=== PATIENT | male | born 1940 | race Caucasian/White ===

== ENCOUNTER 2018-06-08 10:01 | Emergency (ER) | payer MEDICARE, OTHER ==
[2018-06-08] MEDS ORDERED: Aspirin 81 MG Tab.Chew PO ONE (10:22)
--- NOTE | 2018-06-08 10:24 | EDM.PDOC ---
ED HPI GENERAL MEDICAL PROBLEM - General Chief Complaint: Chest Pain Stated Complaint: CHEST PAIN Time Seen by Provider: 06/08/18 10:23 Source of Information: Reports: Patient History Limitations: Reports: No Limitations - History of Present Illness INITIAL COMMENTS - FREE TEXT/NARRATIVE: pt arrived with a history of atypical chest pain which started at 3 am. He states the pain is minor rating it a 2-3. He states it does hurt a little more when he takes a deep breath. He has not been doing alot of lifting, He has not had increased pain when he walks. Onset: Other ( started at 3 am. He states he is under a little stress because his is in rehap post back surgery. He has been seeing the cardiology dept in [place]. He was to have a echo. ) Duration: Hour(s): Location: Reports: Chest Associated Symptoms: Reports: Chest Pain, Other (low grade pain. She did not get sweaty. ) - Related Data Allergies Allergy/AdvReac Type Severity Reaction Status Date / Time No Known Allergies Allergy Verified 06/08/18 10:07 Home Meds: Home Meds Aspirin [Ecotrin] 81 mg PO DAILY 10/30/15 [History] Nitroglycerin [Nitrostat] 0.4 mg SL ASDIRECTED PRN 10/30/15 [History] atorvaSTATin [Lipitor] 80 mg PO BEDTIME 10/30/15 [History] Carvedilol [Coreg] 3.125 mg PO BID 04/28/17 [History] Famotidine 20 mg PO BID PRN 04/28/17 [History] Isosorbide Mononitrate [Imdur] 60 mg PO DAILY 04/28/17 [History] Lisinopril 1 tab PO DAILY 04/28/17 [History] Pantoprazole [ProTONIX] 40 mg PO BID 04/28/17 [History] Acetaminophen [Tylenol Arthritis] 1 tab PO Q6H PRN 06/03/17 [History] Clopidogrel [Plavix] 75 mg PO DAILY 06/08/18 [History] Past Medical History HEENT History: Reports: Impaired Vision Cardiovascular History: Reports: CAD, High Cholesterol, Hypertension, [place], Prior Cardiac Arrest, Stents Respiratory History: Reports: Sleep Apnea, Other (See Below) Other Respiratory History: has cpap Gastrointestinal History: Reports: GERD, Hiatal Hernia Musculoskeletal History: Reports: Fracture, Osteoarthritis, Other (See Below) Other Musculoskeletal History: r shoulder r knee pain Neurological History: Reports: Concussion - Infectious Disease History Infectious Disease History: Reports: Measles, Mumps - Past Surgical History Head Surgeries/Procedures: Reports: None Cardiovascular Surgical History: Reports: Coronary Artery Stent, Percutaneous Transluminal Angioplasty Respiratory Surgical History: Reports: None GI Surgical History: Reports: Appendectomy Neurological Surgical History: Reports: None Musculoskeletal Surgical History: Reports: None Social & Family History - Tobacco Use Smoking Status *Q: Former Smoker Used Tobacco, but Quit: Yes Month/Year Tobacco Last Used: 1984 Second Hand Smoke Exposure: No - Caffeine Use Caffeine Use: Reports: Coffee - Recreational Drug Use Recreational Drug Use: No ED ROS GENERAL - Review of Systems Review Of Systems: See Below Constitutional: Reports: No Symptoms HEENT: Reports: No Symptoms Respiratory: Reports: Shortness of Breath Cardiovascular: Reports: Chest Pain Endocrine: Reports: No Symptoms GI/Abdominal: Reports: No Symptoms : Reports: No Symptoms Musculoskeletal: Reports: Other ( chest pain) Neurological: Reports: No Symptoms Psychiatric: Reports: No Symptoms ED EXAM, GENERAL - Physical Exam Exam: See Below Free Text/Narrative:: pt arrived with low grade chest pain He is not sob but he does have a slight inmcrease in his pain with deep breathing. hE DOES NOT FEEL ILL. hE WAS TO HAVE A ECHO PER THE [employer] IN [place]. hE HAS NOT BEEN ABLE TO GET THIS SCHEDULED. General Appearance: Alert, Mild Distress Ears: Normal TMs Nose: Normal Inspection Throat/Mouth: Normal Inspection Head: Atraumatic Neck: Normal Inspection Respiratory/Chest: No Respiratory Distress Cardiovascular: Regular Rate, Rhythm, Other ( EKG DID NOT SHOW ACUTE CHANGES. ) GI/Abdominal: Soft, Non-Tender (Male) Exam: Deferred Rectal (Males) Exam: Deferred Back Exam: Normal Inspection Extremities: Normal Inspection Neurological: Alert, Oriented, Normal Cognition Course - Vital Signs Last Recorded V/S: Last Vital Signs Temp 36.1 C 06/08/18 10:36 Pulse 71 06/08/18 13:40 Resp 12 06/08/18 13:40 BP 144/85 H 06/08/18 13:40 Pulse Ox 96 06/08/18 13:40 - Orders/Labs/Meds Orders: Active Orders 24 hr Category Date Time Status EKG Documentation Completion [RC] ASDIRECTED Care 06/08/18 10:22 Active Echo Comp wo Cont [US] Stat Exams 06/08/18 11:55 Taken EKG 12 Lead [EK] Routine Ther 06/08/18 10:22 Ordered Labs: Laboratory Tests 06/08/18 06/08/18 06/08/18 Range/Units 10:21 10:26 10:26 WBC 8.2 (4.5-11.0) K/uL RBC 4.71 (4.30-5.90) M/uL Hgb 14.7 (12.0-15.0) g/dL Hct 42.4 (40.0-54.0) % MCV 90 (80-98) fL MCH 31 (27-31) pg MCHC 35 (32-36) % Plt Count 227 (150-400) K/uL Neut % (Auto) 51 (36-66) % Lymph % (Auto) 33 (24-44) % [place] % (Auto) 12 H (2-6) % Eos % (Auto) 4 (2-4) % Baso % (Auto) 1 (0-1) % Sodium 141 (140-148) mmol/L Potassium 4.4 (3.6-5.2) mmol/L Chloride 104 (100-108) mmol/L Carbon Dioxide 30 (21-32) mmol/L Anion Gap 7.1 (5.0-14.0) mmol/L BUN 14 (7-18) mg/dL Creatinine 1.0 (0.8-1.3) mg/dL Est Cr Clr Drug Dosing 62.84 mL/min Estimated GFR (MDRD) > 60 (>60) Glucose 64 L (74-106) mg/dL Calcium 8.8 (8.5-10.1) mg/dL Total Bilirubin 1.2 H (0.2-1.0) mg/dL AST 19 (15-37) U/L ALT 34 (12-78) U/L Alkaline Phosphatase 58 (46-116) U/L Troponin I < 0.017 (0.000-0.056) ng/mL Total Protein 6.9 (6.4-8.2) g/dL Albumin 3.9 (3.4-5.0) g/dL Globulin 3.0 (2.3-3.5) g/dL Albumin/Globulin Ratio 1.3 (1.2-2.2) 06/08/18 Range/Units 13:31 WBC (4.5-11.0) K/uL RBC (4.30-5.90) M/uL Hgb (12.0-15.0) g/dL Hct (40.0-54.0) % MCV (80-98) fL MCH (27-31) pg MCHC (32-36) % Plt Count (150-400) K/uL Neut % (Auto) (36-66) % Lymph % (Auto) (24-44) % [place] % (Auto) (2-6) % Eos % (Auto) (2-4) % Baso % (Auto) (0-1) % Sodium (140-148) mmol/L Potassium (3.6-5.2) mmol/L Chloride (100-108) mmol/L Carbon Dioxide (21-32) mmol/L Anion Gap (5.0-14.0) mmol/L BUN (7-18) mg/dL Creatinine (0.8-1.3) mg/dL Est Cr Clr Drug Dosing mL/min Estimated GFR (MDRD) (>60) Glucose (74-106) mg/dL Calcium (8.5-10.1) mg/dL Total Bilirubin (0.2-1.0) mg/dL AST (15-37) U/L ALT (12-78) U/L Alkaline Phosphatase (46-116) U/L Troponin I < 0.017 (0.000-0.056) ng/mL Total Protein (6.4-8.2) g/dL Albumin (3.4-5.0) g/dL Globulin (2.3-3.5) g/dL Albumin/Globulin Ratio (1.2-2.2) Meds: Medications Discontinued Medications Generic Name Dose Route Start Last Admin Trade Name Freq PRN Reason Stop Dose Admin Aspirin 324 mg 06/08/18 10:22 06/08/18 10:35 Aspirin PO 06/08/18 10:23 324 mg ONETIME ONE Administration - Re-Assessments/Exams Free Text/Narrative Re-Assessment/Exam: 06/08/18 15:27 PT HAD 2 NEG TROPS, HIS EKG DID NOT SHOW ACUTE FINDINGS. hIS CHEST XRAY DID NOT REVEAL A ACUTE INFILTRATE. Departure - Departure Time of Disposition: 14:16 Disposition: Home, Self-Care 01 Condition: Fair Clinical Impression: Atypical chest pain Instructions: Exercise Stress Test, [id number] Referrals: PCP,None [Primary Care Provider] - Forms: ED Department Discharge Additional Instructions: Cardiolite Stress Test is scheduled for Tuesday at 08:15AM with Cardiac Rehab in the basement of the hospital. Care Plan Goals: Call and make a follow up appt with Dr Faust on tue and , call xray the result of the echo should be sent to Dr Faust and the result of the exercise cardiolyte should be sent to Dr Faust. rtc if symptoms should change. tylenol and motrin for chest disciomfort. - My Orders Last 24 Hours: My Active Orders 06/08/18 10:22 EKG Documentation Completion [RC] ASDIRECTED EKG 12 Lead [EK] Routine 06/08/18 11:55 Echo Comp wo Cont [US] Stat - Assessment/Plan Last 24 Hours: My Active Orders 06/08/18 10:22 EKG Documentation Completion [RC] ASDIRECTED EKG 12 Lead [EK] Routine 06/08/18 11:55 Echo Comp wo Cont [US] Stat
--- NOTE | 2018-06-08 11:09 | CR ---
Findings: Heart size within normal limits. Pulmonary vasculature within normal limits. Probable hiatal hernia redemonstrated compared to 11/24/2015. No focal consolidation.
[2018-06-08 14:06] VITALS: BP 144/85
== END 2018-06-08 14:30 | disposition home or self-care (01) ==
LOC: JP.ED 10:01
DX: R07.89 Other chest pain (principal); E78.00 Pure hypercholesterolemia, unspecified; I25.10 Atherosclerotic heart disease of native coronary artery without angina pectoris; I25.2 Old myocardial infarction; K21.9 Gastro-esophageal reflux disease without esophagitis; Z87.891 Personal history of nicotine dependence; Z79.899 Other long term (current) drug therapy; Z79.82 Long term (current) use of aspirin
CPT/HCPCS: 36415; 71045; 80053; 84484; 85025; 93005; 93306; 99285; A9270; 93010

== ENCOUNTER 2018-09-15 07:33 | Emergency (ER) | payer MEDICARE, OTHER ==
[2018-09-15 07:55] VITALS: BP 122/63
--- NOTE | 2018-09-15 08:36 | EDM.PDOC ---
ED HPI GENERAL MEDICAL PROBLEM - General Chief Complaint: Genitourinary Problem Stated Complaint: POSSIBLE UTI Time Seen by Provider: 09/15/18 08:15 Source of Information: Reports: Patient History Limitations: Reports: No Limitations - History of Present Illness INITIAL COMMENTS - FREE TEXT/NARRATIVE: This gentleman complains of burning on urination for a couple of days. He's had bladder infections in the past but it's been 4 or 5 years ago. He denies any prostate trouble. He does not have any difficulty draining the bladder. He realizes that he drinks very little water. Pelvic Pain Score (Numeric/FACES): 8 - Related Data Allergies Allergy/AdvReac Type Severity Reaction Status Date / Time No Known Allergies Allergy Verified 09/15/18 08:02 Home Meds: Home Meds Aspirin [Ecotrin] 81 mg PO DAILY 10/30/15 [History] Nitroglycerin [Nitrostat] 0.4 mg SL ASDIRECTED PRN 10/30/15 [History] atorvaSTATin [Lipitor] 80 mg PO BEDTIME 10/30/15 [History] Carvedilol [Coreg] 3.125 mg PO BID 04/28/17 [History] Famotidine 20 mg PO BID 04/28/17 [History] Isosorbide Mononitrate [Imdur] 60 mg PO DAILY 04/28/17 [History] Lisinopril 1 tab PO DAILY 04/28/17 [History] Pantoprazole [ProTONIX] 40 mg PO BID 04/28/17 [History] Acetaminophen [Tylenol Arthritis] 1 tab PO Q6H PRN 06/03/17 [History] Clopidogrel [Plavix] 75 mg PO DAILY 06/08/18 [History] Past Medical History HEENT History: Reports: Impaired Vision Cardiovascular History: Reports: CAD, High Cholesterol, Hypertension, [place], Prior Cardiac Arrest, Stents Respiratory History: Reports: Sleep Apnea, Other (See Below) Other Respiratory History: has cpap Gastrointestinal History: Reports: GERD, Hiatal Hernia Musculoskeletal History: Reports: Fracture, Osteoarthritis, Other (See Below) Other Musculoskeletal History: r shoulder r knee pain Neurological History: Reports: Concussion - Infectious Disease History Infectious Disease History: Reports: Measles, Mumps - Past Surgical History Head Surgeries/Procedures: Reports: None Cardiovascular Surgical History: Reports: Coronary Artery Stent, Percutaneous Transluminal Angioplasty Respiratory Surgical History: Reports: None GI Surgical History: Reports: Appendectomy Neurological Surgical History: Reports: None Musculoskeletal Surgical History: Reports: None Social & Family History - Tobacco Use Smoking Status *Q: Former Smoker Used Tobacco, but Quit: Yes Month/Year Tobacco Last Used: 30 years - Caffeine Use Caffeine Use: Reports: Coffee - Recreational Drug Use Recreational Drug Use: No ED ROS GENERAL - Review of Systems Review Of Systems: ROS reveals no pertinent complaints other than HPI. ED EXAM, RENAL/ - Physical Exam Exam: See Below Exam Limited By: No Limitations General Appearance: Alert, WD/WN, No Apparent Distress Respiratory/Chest: No Respiratory Distress GI/Abdominal: Soft, Non-Tender, No Mass, Other (Bladder non-distended) Extremities: Normal Inspection Neurological: Alert, Oriented Course - Vital Signs Last Recorded V/S: Last Vital Signs Temp 35.3 C 09/15/18 07:47 Pulse 92 09/15/18 07:47 Resp 16 09/15/18 07:47 BP 122/63 09/15/18 07:47 Pulse Ox 95 09/15/18 07:47 - Orders/Labs/Meds Labs: Laboratory Tests 09/15/18 Range/Units 07:51 Urine Color Yellow Urine Appearance Cloudy Urine pH 5.0 (4.5-8.0) Ur Specific Odell 1.020 (1.008-1.030) Urine Protein Trace (NEGATIVE) mg/dL Urine Glucose (UA) Negative (NEGATIVE) mg/dL Urine Ketones Negative (NEGATIVE) mg/dL Urine Occult Blood Trace (NEGATIVE) Urine Nitrite Positive (NEGAITVE) Urine Bilirubin Negative (NEGATIVE) Urine Urobilinogen Normal (NORMAL) mg/dL Ur Leukocyte Esterase Moderate (NEGATIVE) Urine RBC 5-10 H (0-5) Urine WBC 40-50 H (0-5) Ur Epithelial Cells Few Amorphous Sediment Not seen Urine Bacteria Many Urine Mucus Not seen Departure - Departure Time of Disposition: 08:34 Disposition: Home, Self-Care 01 Condition: Fair Clinical Impression: UTI, Urinary tract infectious disease - Discharge Information Instructions: Urinary Tract Infection, Adult Referrals: Brian Casas MD [Primary Care Provider] - Forms: ED Department Discharge Additional Instructions: Take Bactrim DS one tablet twice daily for 5 days. Be sure to drink a lot of water with this medicine. For urinary discomfort take phenazopyridine or Pyridium 200 mg 3 times per day. Drinking a lot of water every day can help prevent urinary tract infections. If you have trouble emptying your bladder you could be developing some prostate trouble and should see your DrSean about this.
== END 2018-09-15 08:55 | disposition home or self-care (01) ==
LOC: JP.ED 07:33
DX: N39.0 Urinary tract infection, site not specified (principal); I10 Essential (primary) hypertension; Z79.82 Long term (current) use of aspirin; Z79.899 Other long term (current) drug therapy; Z87.891 Personal history of nicotine dependence
CPT/HCPCS: 81001; 99283

== ENCOUNTER 2019-10-01 18:35 | Emergency (ER) | payer MEDICARE, OTHER ==
[2019-10-01 19:09] VITALS: BP 182/95; PULSE 71
[2019-10-01] MEDS ORDERED: Acetaminophen/HYDROcodone 325-5 MG Tab PO ONE (19:33)
[2019-10-01] MEDS ORDERED: Tetracaine HCl/PF 0.5% 4 ML Bottle EYERT ONE (19:40)
[2019-10-01] MEDS ORDERED: Diphtheria,Pertussis(Acell),Tetanus Vaccine 0.5 ML SDV IM ONE (19:48)
--- NOTE | 2019-10-01 19:49 | EDM.PDOC ---
ED HPI GENERAL MEDICAL PROBLEM - General Chief Complaint: Eye Problems Stated Complaint: R EYE IRRITATION Time Seen by Provider: 10/01/19 19:30 Source of Information: Reports: Patient, Old Records History Limitations: Reports: Other (records not available from today's eye appt. Patient not a great historian.) - History of Present Illness INITIAL COMMENTS - FREE TEXT/NARRATIVE: 79 yo male had an appt in [place] with ophthalmology at 10 am today for a pre-op exam before schedule cataract surgery. He incurred eye pain in the R eye about 3 days ago, but held off and didn't do anything as he knew he had this eye appt coming up. He says they told him he had a scratch in that eye and gave him "Terramycin" to use. He was not given anything for pain and didn't ask for anything for pain. He does not have a follow up appt regarding eye pain. He wears corrective lenses, but didn't bring them along to the ER. He does not know the name of the doctor he saw today. The paper work his brought from home only discusses the upcoming cataract surgery. Did not bring his Terramycin drops with him either. Onset: Unknown/Unsure Duration: Day(s): (3), Getting Worse Location: Reports: Face (R eye) Quality: Reports: Burning Severity: Moderate Improves with: Reports: None Worsens with: Reports: None Context: Reports: Trauma Associated Symptoms: Reports: No Other Symptoms Treatments FACILITY ASSISTANT: Reports: Other (see below) (Terramycin eye drops) Right Eye Pain Score (Numeric/FACES): 10 - Related Data Allergies Allergy/AdvReac Type Severity Reaction Status Date / Time No Known Allergies Allergy Verified 10/01/19 19:02 Home Meds: Home Meds Aspirin [Ecotrin] 81 mg PO DAILY 10/30/15 [History] Nitroglycerin [Nitrostat] 0.4 mg SL ASDIRECTED PRN 10/30/15 [History] atorvaSTATin [Lipitor] 80 mg PO BEDTIME 10/30/15 [History] Famotidine 20 mg PO BID 04/28/17 [History] Isosorbide Mononitrate [Imdur] 60 mg PO DAILY 04/28/17 [History] Lisinopril 1 tab PO DAILY 04/28/17 [History] Pantoprazole [ProTONIX] 40 mg PO BEDTIME 04/28/17 [History] carvediloL [Coreg] 3.125 mg PO BID 04/28/17 [History] Acetaminophen [Tylenol Arthritis] 1 tab PO Q6H PRN 06/03/17 [History] Clopidogrel [Plavix] 75 mg PO DAILY 06/08/18 [History] Erythromycin Base [Erythromycin] 1 drop EYERT ASDIRECTED 10/01/19 [History] Past Medical History HEENT History: Reports: Glaucoma, Impaired Vision Cardiovascular History: Reports: CAD, High Cholesterol, Hypertension, [place], Prior Cardiac Arrest, Stents Respiratory History: Reports: Sleep Apnea, Other (See Below) Other Respiratory History: has cpap Gastrointestinal History: Reports: GERD, Hiatal Hernia Musculoskeletal History: Reports: Fracture, Osteoarthritis, Other (See Below) Other Musculoskeletal History: r shoulder r knee pain Neurological History: Reports: Concussion Hematologic History: Reports: Anticoagulation Therapy - Infectious Disease History Infectious Disease History: Reports: Measles, Mumps - Past Surgical History Head Surgeries/Procedures: Reports: None HEENT Surgical History: Reports: Eye Surgery Cardiovascular Surgical History: Reports: Coronary Artery Stent, Percutaneous Transluminal Angioplasty Respiratory Surgical History: Reports: None GI Surgical History: Reports: Appendectomy Neurological Surgical History: Reports: None Musculoskeletal Surgical History: Reports: None Social & Family History - Tobacco Use Smoking Status *Q: Never Smoker - Caffeine Use Caffeine Use: Reports: Coffee ED ROS GENERAL - Review of Systems Review Of Systems: Comprehensive ROS is negative, except as noted in HPI. Constitutional: Reports: No Symptoms HEENT: Reports: Eye Pain (R eye) ED EXAM GENERAL W FULL EYE - Physical Exam Exam: See Below Exam Limited By: No Limitations General Appearance: Alert, WD/WN, Mild Distress Eye Exam: Bilateral Eye: EOMI, PERRL With Correction: No Eyelids: Bilateral: Normal Appearance Conjunctiva & Sclera: Right: Injected Cornea Exam: Right: Corneal Abrasion (elipse just at bottoem of pupil), Examined with Flourescein Extraocular Movements: Bilateral: Intact Pupillary Size: Bilateral: 4 mm (still slightly dilated from his eye appt earlier today.) Course - Vital Signs Text/Narrative:: Discussed case with Dr. Hoyos, ophthalmology, [place] @ 1945h Last Recorded V/S: Last Vital Signs Temp 36.6 C 10/01/19 19:04 Pulse 71 10/01/19 19:04 Resp 16 10/01/19 19:04 BP 182/95 H 10/01/19 19:04 Pulse Ox 98 10/01/19 19:04 - Orders/Labs/Meds Orders: Active Orders 24 hr Category Date Time Status Vaccines to be Administered [RC] PER UNIT ROUTINE Care 10/01/19 19:48 Active Meds: Medications Discontinued Medications Generic Name Dose Route Start Last Admin Trade Name Carlo PRN Reason Stop Dose Admin Hydrocodone Bitart/Acetaminophen 1 tab 10/01/19 19:33 10/01/19 19:41 Campbell 325-5 Mg PO 10/01/19 19:34 1 tab ONETIME ONE Administration Diphtheria/Tetanus/Acell Pertussis 0.5 ml 10/01/19 19:48 Adacel IM 10/01/19 19:49 .ONCE ONE Tetracaine HCl 1 ml 10/01/19 19:40 10/01/19 19:45 Tetracaine 0.5% Steri-Unit Sabine EYERT 10/01/19 19:41 1 drop ASDIRECTED ONE Administration Departure - Departure Time of Disposition: 20:07 Disposition: Home, Self-Care 01 Condition: Fair Clinical Impression: Corneal abrasion, right Qualifiers: Encounter type: initial encounter Qualified Code(s): S05.01XA - Injury of conjunctiva and corneal abrasion without foreign body, right eye, initial encounter - Discharge Information *PRESCRIPTION DRUG MONITORING PROGRAM REVIEWED*: No *COPY OF PRESCRIPTION DRUG MONITORING REPORT IN PATIENT ARSENIO: No Instructions: Corneal Abrasion, [id number] Referrals: PCP,None [Primary Care Provider] - Forms: ED Department Discharge Additional Instructions: Rest in a darkened room. No rubbing of the right eye. Apply your antibiotic eye drops as directed. Use ibuprofen and/or Campbell for pain relief as needed. See your doctor in 2 days for eye recheck, call tomorrow morning for an appt. Sepsis Event Note - Evaluation Sepsis Screening Result: No Definite Risk - Focused Exam Vital Signs: Vital Signs Temp Pulse Resp BP Pulse Ox 10/01/19 19:04 36.6 C 71 16 182/95 H 98 10/01/19 18:46 36.6 C 71 16 182/95 H 98 Date Exam was Performed: 10/01/19 Time Exam was Performed: 19:56 - My Orders Last 24 Hours: My Active Orders 10/01/19 19:48 Vaccines to be Administered [RC] PER UNIT ROUTINE - Assessment/Plan Last 24 Hours: My Active Orders 10/01/19 19:48 Vaccines to be Administered [RC] PER UNIT ROUTINE
== END 2019-10-01 20:28 | disposition home or self-care (01) ==
LOC: JP.ED 18:35
DX: S05.01XA Injury of conjunctiva and corneal abrasion without foreign body, right eye, initial encounter (principal); I25.10 Atherosclerotic heart disease of native coronary artery without angina pectoris; E78.00 Pure hypercholesterolemia, unspecified; I10 Essential (primary) hypertension; I25.2 Old myocardial infarction; K21.9 Gastro-esophageal reflux disease without esophagitis; M19.90 Unspecified osteoarthritis, unspecified site; Z79.82 Long term (current) use of aspirin; Z79.02 Long term (current) use of antithrombotics/antiplatelets; Z79.899 Other long term (current) drug therapy; Z23 Encounter for immunization; X58.XXXA Exposure to other specified factors, initial encounter
CPT/HCPCS: 90471; 90715; 99283; A9270

== ENCOUNTER 2021-05-08 06:20 | Day surgery (SDC) | payer MEDICARE, OTHER ==
[2021-05-08] MEDS ORDERED: Sodium Chloride 0.9% 1,000 ML IV SCH (07:00)
[2021-05-08] MEDS ORDERED: fentaNYL 100 MCG/2 ML SDV ONE (07:24)
[2021-05-08] MEDS ORDERED: Propofol 200 MG/20 ML SDV ONE (07:24)
[2021-05-08 09:02] VITALS: BP 132/65; PULSE 72
--- NOTE | 2021-05-08 09:16 | OR ---
DATE OF PROCEDURE: 05/08/2021 SURGEON: Liban Carroll MD PROCEDURE: Esophagogastroduodenoscopy. FINDINGS: 1. [place]-type protrusion of tissue concerning for reflux disease at the GE junction (biopsied using cold biopsy forceps). 2. 5 cm hiatal hernia. COMPLICATIONS: None. VEHICLE ASSEMBLY INSPECTOR: None. ANESTHESIA: MAC. PREOPERATIVE DIAGNOSIS: Epigastric pain. POSTOPERATIVE DIAGNOSIS: Epigastric pain. RISKS: Risks, benefits, alternatives, and limitations including, but not limited to infection, bleeding, perforation, false positive, false negatives were explained to the patient who wished to proceed. PROCEDURE IN DETAIL: The patient was placed in left lateral decubitus position. The EGD scope was introduced and advanced atraumatically to the second part of the duodenum. No evidence of duodenitis or ulceration were noted. No old or new blood. The GE junction had an irregularity concerning for reflux disease. This was biopsied in all 4 quadrants using cold biopsy forceps. The remainder of the esophagus was inspected without abnormality. The patient tolerated the procedure well. Liban Carroll MD /[id number]
== END 2021-05-08 09:17 | disposition home or self-care (01) ==
LOC: JP.SDS 06:20
PROVIDERS: ATTEND Surgery
DX: K22.70 Barrett's esophagus without dysplasia (principal); K44.9 Diaphragmatic hernia without obstruction or gangrene; E78.5 Hyperlipidemia, unspecified; I25.10 Atherosclerotic heart disease of native coronary artery without angina pectoris; K21.9 Gastro-esophageal reflux disease without esophagitis; G47.33 Obstructive sleep apnea (adult) (pediatric)
CPT/HCPCS: 43239; J2704; J3010; J7030

== ENCOUNTER 2022-04-13 08:22 | Day surgery (SDC) | payer MEDICARE, OTHER ==
[2022-04-13] MEDS ORDERED: Dextrose 5%-Lactated Ringers 1,000 ML IV SCH (08:45)
[2022-04-13] MEDS ORDERED: Propofol 200 MG/20 ML SDV ONE (09:55)
[2022-04-13 13:05] VITALS: BP 156/76; PULSE 73
== END 2022-04-13 13:20 | disposition home or self-care (01) ==
LOC: JP.SDS 08:22
PROVIDERS: ATTEND Surgery
DX: K22.70 Barrett's esophagus without dysplasia (principal); K31.A19 Gastric intestinal metaplasia without dysplasia, unspecified site; K21.00 Gastro-esophageal reflux disease with esophagitis, without bleeding; K29.70 Gastritis, unspecified, without bleeding; K29.80 Duodenitis without bleeding; K44.9 Diaphragmatic hernia without obstruction or gangrene; I25.10 Atherosclerotic heart disease of native coronary artery without angina pectoris; G47.33 Obstructive sleep apnea (adult) (pediatric)
CPT/HCPCS: 87081; J2704; J7121

== ENCOUNTER 2022-10-01 02:15 | Emergency (ER) | payer MEDICARE, OTHER ==
[2022-10-01] MEDS ORDERED: Lidocaine 1% 5 ML VIAL INJECT ONE (02:17)
[2022-10-01] MEDS ORDERED: Diphtheria,Pertussis(Acell),Tetanus Vaccine 0.5 ML Syringe IM ONE (02:17)
[2022-10-01] MEDS ORDERED: Bacitracin Oint 1 GM U/D Packet TOP ONE (02:17)
[2022-10-01 02:30] VITALS: BP 157/59; PULSE 78
[2022-10-01] MEDS ORDERED: ceFAZolin 1 GM Vial IM ONE (03:01)
[2022-10-01] MEDS ORDERED: Water For Injection, Sterile 10 ML ONE (03:07)
== END 2022-10-01 03:39 | disposition home or self-care (01) ==
LOC: JP.ED 02:15
DX: S61.217A Laceration without foreign body of left little finger without damage to nail, initial encounter (principal); I25.10 Atherosclerotic heart disease of native coronary artery without angina pectoris; I11.9 Hypertensive heart disease without heart failure; I25.2 Old myocardial infarction; K21.9 Gastro-esophageal reflux disease without esophagitis; Z79.02 Long term (current) use of antithrombotics/antiplatelets; Z79.82 Long term (current) use of aspirin; Z79.899 Other long term (current) drug therapy; Z23 Encounter for immunization; W25.XXXA Contact with sharp glass, initial encounter
CPT/HCPCS: 12001; 90471; 96372; 99282; J0690

== ENCOUNTER 2023-05-19 07:55 | Day surgery (SDC) | payer MEDICARE, OTHER ==
[~2023-05-19 07:55] MED LIST: Propofol 200 MG/20 ML SDV ONE; fentaNYL 100 MCG/2 ML SDV ONE
[2023-05-19] MEDS ORDERED: Sodium Chloride 0.9% 1,000 ML IV SCH (09:00)
[2023-05-19 11:48] VITALS: BP 135/67; PULSE 77
== END 2023-05-19 12:00 | disposition home or self-care (01) ==
LOC: JP.SDS 07:55
PROVIDERS: ATTEND Surgery
DX: K22.70 Barrett's esophagus without dysplasia (principal); I25.10 Atherosclerotic heart disease of native coronary artery without angina pectoris; K21.9 Gastro-esophageal reflux disease without esophagitis; I48.0 Paroxysmal atrial fibrillation
CPT/HCPCS: 43235; J2704; J3010; J7030

== ENCOUNTER 2023-11-21 06:32 | Day surgery (SDC) | payer MEDICARE, OTHER ==
[~2023-11-21 06:32] MED LIST changes: +Nozin Nasal Sanitizer NASBOTH ONE; -Propofol 200 MG/20 ML SDV ONE; -fentaNYL 100 MCG/2 ML SDV ONE
[2023-11-21] MEDS: Lactated Ringers 1,000 ML IV SCH (06:46)
[2023-11-21 06:54] LABS: BASOPHILS ABSOLUTE AUTO 0.05 K/uL (0.00-0.10); BASOPHILS PERCENT AUTO 0.6 % (0.1-1.3); EOSINOPHILS ABSOLUTE AUTO 0.22 K/uL (0.00-0.40); EOSINOPHILS PERCENT AUTO 2.6 % (0.0-5.4); HEMATOCRIT 39.1 % (38.4-49.7); HEMOGLOBIN 13.5 g/dL (12.9-16.9); IMMATURE GRAN PERCENT AUTO 0.2 % (0.0-0.7); LYMPHOCYTES ABSOLUTE AUTO 3.57 K/uL (0.8-3.3); LYMPHOCYTES PERCENT AUTO 41.6 % (11.4-47.7); MEAN CORPUSCULAR HGB CONC 34.5 g/dL (31.6-35.5); MEAN CORPUSCULAR VOLUME 89.9 fL (81.4-99.0); MONOCYTES ABSOLUTE AUTO 0.88 K/uL (0.20-0.90); MONOCYTES PERCENT AUTO 10.3 % (3.3-12.6); NEUTROPHILS ABSOLUTE AUTO 3.84 K/uL (1.0-7.6); NEUTROPHILS PERCENT AUTO 44.7 % (40.0-78.1); PLATELET COUNT,PLT 184 K/uL (130-375); RED BLOOD CELL COUNT 4.35 M/uL (4.14-5.76); WHITE BLOOD CELL COUNT,WBC 8.6 K/uL (3.2-11.0)
[2023-11-21 06:59] LABS: IMMATURE GRAN ABSOLUTE AUTO 0.02 K/uL (0.00-0.23)
[2023-11-21] MEDS ORDERED: Propofol 200 MG/20 ML SDV ONE (07:09)
[2023-11-21] MEDS ORDERED: fentaNYL 100 MCG/2 ML SDV ONE (07:09)
[2023-11-21 07:14] LABS: A/G RATIO 1.2 (1.2-2.2); ALANINE AMINOTRANSFERASE,ALT 27 U/L (12-78); ALBUMIN 3.7 g/dL (3.4-5.0); ALKALINE PHOSPHATASE 69 U/L (46-116); ASPARTATE AMNIOTRANSFERASE,AST 19 U/L (15-37); BILIRUBIN TOTAL 1.2 mg/dL (0.2-1.0); BLOOD UREA NITROGEN,BUN 21 mg/dL (7-18); CALCIUM 8.7 mg/dL (8.5-10.1); CARBON DIOXIDE,CO2 28 mmol/L (21-32); CHLORIDE,CL 103 mmol/L (100-108); CREATININE 1.3 mg/dL (0.8-1.3); EST CRCL DRUG DOSING (CG) 43.84 mL/min; ESTIMATED GFR 55 mL/min (>60); GLUCOSE RANDOM 121 mg/dL (74-106); POTASSIUM,K 4.3 mmol/L (3.6-5.2); PROTEIN TOTAL,TP 6.7 g/dL (6.4-8.2); SODIUM,NA 139 mmol/L (140-148)
[2023-11-21 07:15] LABS: ANION GAP 12.3 mmol/L (5.0-14.0)
[2023-11-21] MEDS: ceFAZolin 1 GM in Premix Bag 1 BAG IV ONE (07:45)
[2023-11-21] MEDS ORDERED: Midazolam 1 MG/ML 2 ML SDV ONE (07:50)
[2023-11-21] MEDS: Bupivacaine 0.5% 30 ML SDV ONE (08:09)
[2023-11-21 09:14] VITALS: PULSE 66
[2023-11-21 09:28] VITALS: BP 144/72
== END 2023-11-21 09:40 | disposition home or self-care (01) ==
LOC: JP.SDS 06:32
PROVIDERS: ATTEND Specialist
DX: M67.432 Ganglion, left wrist (principal); D21.12 Benign neoplasm of connective and other soft tissue of left upper limb, including shoulder; G47.33 Obstructive sleep apnea (adult) (pediatric); I73.9 Peripheral vascular disease, unspecified; E10.9 Type 1 diabetes mellitus without complications; K21.9 Gastro-esophageal reflux disease without esophagitis; E78.00 Pure hypercholesterolemia, unspecified; I10 Essential (primary) hypertension; Z79.899 Other long term (current) drug therapy
CPT/HCPCS: 01810; 25111; 36415; 80053; 85025; 88305; 88313; 88341; 88342; 93005; 93010; J0665; J0689; J2250; J2704; J3010; J7120; 25075

== ENCOUNTER 2024-11-22 10:58 | Emergency (ER) | payer MEDICARE, OTHER ==
[2024-11-22 11:33] LABS: BASOPHILS ABSOLUTE AUTO 0.04 K/uL (0.00-0.10); BASOPHILS PERCENT AUTO 0.5 % (0.1-1.3); EOSINOPHILS ABSOLUTE AUTO 0.19 K/uL (0.00-0.40); EOSINOPHILS PERCENT AUTO 2.3 % (0.0-5.4); HEMATOCRIT 38.7 % (38.4-49.7); HEMOGLOBIN 13.2 g/dL (12.9-16.9); IMMATURE GRAN PERCENT AUTO 0.2 % (0.0-0.7); LYMPHOCYTES ABSOLUTE AUTO 3.59 K/uL (0.8-3.3); LYMPHOCYTES PERCENT AUTO 43.4 % (11.4-47.7); MEAN CORPUSCULAR HEMOGLOBIN 31.5 pg (31.6-35.5); MEAN CORPUSCULAR HGB CONC 34.1 g/dL (31.6-35.5); MEAN CORPUSCULAR VOLUME 92.4 fL (81.4-99.0); MONOCYTES PERCENT AUTO 8.5 % (3.3-12.6); NEUTROPHILS ABSOLUTE AUTO 3.73 K/uL (1.0-7.6); NEUTROPHILS PERCENT AUTO 45.1 % (40.0-78.1); PLATELET COUNT,PLT 184 K/uL (130-375); RED BLOOD CELL COUNT 4.19 M/uL (4.14-5.76); WHITE BLOOD CELL COUNT,WBC 8.3 K/uL (3.2-11.0)
[2024-11-22 11:36] LABS: IMMATURE GRAN ABSOLUTE AUTO 0.02 K/uL (0.00-0.23)
[2024-11-22 11:48] LABS: ANION GAP 6.9 mmol/L (5.0-14.0); CALCIUM 8.5 mg/dL (8.5-10.1); CREATININE 1.1 mg/dL (0.8-1.3); EST CRCL DRUG DOSING (CG) 50.09 mL/min; POTASSIUM,K 4.4 mmol/L (3.6-5.2)
[2024-11-22 12:39] VITALS: BP 123/70; PULSE 61
== END 2024-11-22 13:50 | disposition home or self-care (01) ==
LOC: JP.ED 10:58
DX: R07.9 Chest pain, unspecified (principal); I25.10 Atherosclerotic heart disease of native coronary artery without angina pectoris; E78.00 Pure hypercholesterolemia, unspecified; Z79.899 Other long term (current) drug therapy; Z79.82 Long term (current) use of aspirin; Z79.02 Long term (current) use of antithrombotics/antiplatelets; Z95.5 Presence of coronary angioplasty implant and graft; Z86.16 Personal history of COVID-19
CPT/HCPCS: 36415; 71045; 71045-26; 80048; 84484; 85025; 85379; 93005; 93010; 99283; 99285